=== PATIENT | female | born 1960 | race Caucasian/White ===

== ENCOUNTER 2021-02-28 11:11 | Day surgery (SDC) | payer OTHER ==
[2021-02-27 11:29] LABS: COVID AG,FIA SOURCE NASOPHARYNGEAL
[~2021-02-28] VITALS: Ht 157.5 cm; Wt 72.7 kg
[~2021-02-28 11:11] MED LIST: SODIUM CHLORIDE 0.9% 1,000 ML IV ONE; SODIUM CHLORIDE 0.9% 1,000 ML ONE
[2021-02-28] MEDS ORDERED: LIDOCAINE/PF 2% 5 ML SYRINGE IVP ONE (12:00)
[2021-02-28] MEDS ORDERED: PROPOFOL 1% 20 ML VIAL IVP ONE (12:00)
[2021-02-28] MEDS ORDERED: VALS160T31 PO (12:15)
[2021-02-28] MEDS ORDERED: FURO20TA4 PO (12:15)
[2021-02-28] MEDS ORDERED: ALEN35TA53 PO (12:15)
[2021-02-28] MEDS ORDERED: ENOX80DI9 SQ (12:15)
[2021-02-28] MEDS ORDERED: METO-416 PO (12:17)
== END 2021-02-28 15:10 | disposition home or self-care (01) ==
LOC: SURGERY 11:11
PROVIDERS: ATTEND Internal Medicine Gastroenterology
DX: D50.9 Iron deficiency anemia, unspecified (principal); K29.50 Unspecified chronic gastritis without bleeding; I10 Essential (primary) hypertension; Z90.710 Acquired absence of both cervix and uterus; Z88.8 Allergy status to other drugs, medicaments and biological substances; Z98.890 Other specified postprocedural states; Z95.4 Presence of other heart-valve replacement; Z79.899 Other long term (current) drug therapy
CPT/HCPCS: 45378; 43239; 87426; 93005; C1769; C9803; J2704; J3490; J7030; 88305; 88312; 88313